=== PATIENT | female | born 1965 | race Caucasian/White ===

== ENCOUNTER 2024-05-19 15:45 | Inpatient (IN) | payer OTHER, MEDICAID ==
[~2024-05-19] VITALS: Ht 167.6 cm; Wt 80.3 kg
[2024-05-19] MEDS: VANCOMYCIN IV 1,000 MG in IV DEXTROSE 5% 250 ML IV ONE (16:00)
[2024-05-19] MEDS ORDERED: CLINDAMYCIN 600 MG PIGGYBACK**ER OMNI IV ONE (16:11)
[2024-05-19] MEDS ORDERED: CEFTRIAXONE /D5W 50ML IVPB **ER PYXIS IV ONE (16:11)
[2024-05-19] MEDS ORDERED: VANCOMYCIN IV 200 ML ONE ×2 (16:11→22:03)
[2024-05-19 16:23] LABS: ABG BASE EXCESS 1.7 mmol/L (-2.0-3.0); ABG HCO3 25.3 mmol/L (21.0-28.0); ABG PCO2 35.1 mmHg (32.0-45.0); ABG PH 7.475 (7.350-7.450); ABG PO2 52.6 mmHg (83.0-108.0); ABG SITE LEFT RADIAL; AaDO2 89.6 mmHg; COHb 0.5 % (0.5-1.5); MetHb 0.4 % (0.0-1.5); O2Hb 87.4 % (94.0-98.0)
[2024-05-19] MEDS: CLINDAMYCIN PHOSPHATE IV 600 MG in IV DEXTROSE 5% 100 ML IV ONE (16:30)
[2024-05-19 16:33] LABS: CALCIUM 8.6 mg/dL (8.5-10.1); CARBON DIOXIDE 28 mmol/L (21-32); CHLORIDE 94 mmol/L (98-107); CREATININE 1.1 mg/dL (0.6-1.3); GLUCOSE 254 mg/dL (74-106); POTASSIUM 4.5 mmol/L (3.5-5.1); SODIUM SERUM 132 mmol/L (136-145); UREA NITROGEN, BLOOD 20 mg/dL (7-18)
[2024-05-19 16:35] LABS: EOSINOPHILS % (AUTO) 0.1 % (0.0-7.0); LYMPHOCYTES # (AUTO) 1.1 K/uL (0.8-4.8); PLATELET COUNT (AUTO) 296 K/uL (179-408); WHITE BLOOD COUNT (AUTO) 12.8 K/uL (3.8-11.8)
[2024-05-19 16:36] LABS: BASOPHILS # (AUTO) 0.1 K/UL (0.0-0.2); BASOPHILS % (AUTO) 0.5 % (0.0-2.0); HEMATOCRIT 22.3 % (31.2-41.9); MEAN CORPUSCULAR HGB CONC 33 g/dL (32.3-35.6); MEAN CORPUSCULAR VOLUME 77.1 fL (75.5-95.3); MONOCYTES # (AUTO) 0.6 K/uL (0.1-1.30); MONOCYTES % (AUTO) 4.5 % (0.0-11.0); NEUTROPHILS % (AUTO) 85.9 % (38.5-71.5); RED BLOOD CELL COUNT(AUTO) 2.89 MIL/uL (3.63-4.92); RED CELL DISTRIBUTION WIDTH 19.1 % (12.3-17.7)
[2024-05-19 16:37] LABS: DIFFERENTIAL COMMENT 1; HEMOGLOBIN 7.2 g/dL (10.9-14.3)
[2024-05-19] MEDS: CEFTRIAXONE 1 G in IV DEXTROSE 5% 50 ML IV ONE (16:42)
[2024-05-19] MEDS: IV NORMAL SALINE 1000 ML BAG IV ONE (16:42)
[2024-05-19 16:44] LABS: LACTIC ACID 2.9 mmol/L (0.4-2.0)
[2024-05-19 16:46] LABS: ALANINE AMINOTRANSFERASE 23 U/L (14-59); ALKALINE PHOSPHATASE 349 U/L (50-136); ASPARTATE AMINOTRANSFERASE 21 U/L (15-37); BILIRUBIN,DIRECT 0.6 mg/dL (0.0-0.2); BILIRUBIN,TOTAL 0.9 mg/dL (0.2-1.0); NT-PRO BNP 805 pg/mL (0-125); TOTAL PROTEIN, SERUM 8.2 g/dL (6.4-8.2)
[2024-05-19 16:51] LABS: ALBUMIN 1.4 g/dL (3.4-5.0)
[2024-05-19] MEDS ORDERED: ATOR20TA PO (17:11)
[2024-05-19] MEDS ORDERED: GABA300T25 PO (17:11)
[2024-05-19] MEDS ORDERED: METO-356 PO (17:11)
[2024-05-19] MEDS ORDERED: TRAM100T39 PO (17:11)
[2024-05-19] MEDS ORDERED: INSU3INS6 SQ (17:11)
[2024-05-19] MEDS ORDERED: QUET50TA24 PO (17:11)
[2024-05-19] MEDS ORDERED: OXYC-875 PO (17:11)
[2024-05-19] MEDS ORDERED: FERR325T28 PO (17:11)
[2024-05-19] MEDS ORDERED: METF-442 PO (17:11)
[2024-05-19] MEDS ORDERED: ONDANSETRON 4 MG/2 ML VIAL ONE (17:28)
[2024-05-19] MEDS ORDERED: HYDROMORPHONE 1 MG/1 ML DISP.SYRIN ONE (17:28)
[2024-05-19] MEDS: HYDROMORPHONE 1 MG/1 ML DISP.SYRIN IV ONE (17:49)
[2024-05-19] MEDS: ONDANSETRON 4 MG/2 ML VIAL IV ONE (17:49)
[2024-05-19 18:36] LABS: *BILIRUBIN,URIN 1+ (NEGATIVE); *BLOOD, URINE 1+ (NEGATIVE); *KETONES,URINE NEGATIVE (NEGATIVE); *PROTEIN,URINE 1+ (NEGATIVE); LEUKOCYTE ESTERASE ,URINE NEGATIVE (NEGATIVE); NITRITE, URINE NEGATIVE (NEGATIVE); PH,URINE 5.5 (5.0-8.0); UGLUCOSE 1+ (NEGATIVE)
[2024-05-19 18:42] LABS: *CLARITY,URINE SLIGHTLY CLOUDY (CLEAR); *COLOR,URINE DARK YELLOW (YELLOW)
[2024-05-19 19:10] LABS: RBC,URINE 0-3 /HPF (0-3); WBC,URINE 0-3 /HPF (0-3)
[2024-05-19 19:11] LABS: BACTERIA,URINE FEW /HPF (NONE SEEN); SQUAMOUS EPITHELIAL CELL,UR FEW /HPF (NONE SEEN)
[2024-05-19 19:12] LABS: YEAST,URINE MANY /HPF (NONE SEEN)
[2024-05-19] MEDS ORDERED: [UNRECOGNIZED DRUG - OTHER] PO SCH (20:00)
[2024-05-19] MEDS ORDERED: ACETAMINOPHEN PO SCH (20:00)
[2024-05-19] MEDS ORDERED: OXYCODONE HCL PO SCH (20:00)
[2024-05-19] MEDS ORDERED: DEXTROSE 50% 50 ML DISP.SYRIN IV PRN (20:15)
[2024-05-19] MEDS ORDERED: MAGNESIUM HYDROXIDE 30 ML LIQUID UDC PO PRN (20:15)
[2024-05-19] MEDS ORDERED: DOCUSATE SODIUM 250 MG CAPSULE PO SCH (21:00)
[2024-05-19 21:20] VITALS: BP 107/75; TEMP 97.8; O2SAT 100
[2024-05-19] MEDS: INSULIN REGULAR, HUMAN 1000 UNIT/10 ML VIAL SQ PRN (21:27)
[2024-05-19] MEDS ORDERED: INSULIN GLARGINE,HUM 300 UNITS/3 ML CARTRIDGE SQ ONE (21:58)
[2024-05-19] MEDS ORDERED: METRONIDAZOLE 500 MG/NS 100ML 100 ML IV ONE ×2 (21:59→22:00)
[2024-05-19] MEDS ORDERED: CEFEPIME HCL 1 G VIAL ONE (22:00)
[2024-05-19] MEDS: BLOOD SUGAR DIAGNOSTIC 1 EACH STRIP VI SCH (22:05)
[2024-05-19] MEDS: ACIDOPHILUS/BULGARICUS CHEW TAB PO SCH (22:14)
[2024-05-19] MEDS: ATORVASTATIN 20 MG TABLET PO SCH (22:14)
[2024-05-19] MEDS: QUETIAPINE FUMARATE 25 MG TABLET PO SCH (22:14)
[2024-05-19] MEDS: GABAPENTIN 300 MG CAPSULE PO SCH (22:14)
[2024-05-19] MEDS: METRONIDAZOLE 500 MG/NS 100ML 500 MG in PREMIXED 1 EACH IV SCH (22:31)
[2024-05-19] MEDS: INSULIN GLARGINE,HUM 300 UNITS/3 ML CARTRIDGE SQ SCH (22:41)
[2024-05-19] MEDS: DOCUSATE SODIUM 100 MG CAPSULE PO SCH (23:05)
[2024-05-19] MEDS: TRAMADOL HCL 50 MG TABLET PO PRN (23:50)
[2024-05-20] VITALS (17 sets, daily range): BP systolic 100–153; BP diastolic 62–79; TEMP 97.7–99.4; O2SAT 92–98
[2024-05-20] MEDS: ZOLPIDEM 5 MG TABLET PO PRN (01:56)
[2024-05-20] MEDS: VANCOMYCIN IV 1,000 MG in IV DEXTROSE 5% 250 ML IV ONE (04:05)
[2024-05-20] MEDS: PANTOPRAZOLE SODIUM 40 MG TABLET.DR PO SCH (06:22)
[2024-05-20 07:57] LABS: BASOPHILS % (AUTO) 0.2 % (0.0-2.0); DIFFERENTIAL COMMENT 0; EOSINOPHILS % (AUTO) 0.3 % (0.0-7.0); LYMPHOCYTES # (AUTO) 1.2 K/uL (0.8-4.8); LYMPHOCYTES % (AUTO) 10.1 % (20.5-51.5); MEAN CORPUSCULAR HEMOGLOBIN 24.6 uug (24.7-32.8); MEAN CORPUSCULAR HGB CONC 32 g/dL (32.3-35.6); MEAN CORPUSCULAR VOLUME 77.1 fL (75.5-95.3); MONOCYTES # (AUTO) 0.6 K/uL (0.1-1.30); MONOCYTES % (AUTO) 5.2 % (0.0-11.0); NEUTROPHILS # (AUTO) 10.4 K/uL (1.8-8.9); NEUTROPHILS % (AUTO) 84.2 % (38.5-71.5); PLATELET COUNT (AUTO) 285 K/uL (179-408); RED BLOOD CELL COUNT(AUTO) 2.51 MIL/uL (3.63-4.92); RED CELL DISTRIBUTION WIDTH 18.8 % (12.3-17.7); WHITE BLOOD COUNT (AUTO) 12.3 K/uL (3.8-11.8)
[2024-05-20 08:00] LABS: BILIRUBIN,TOTAL 0.9 mg/dL (0.2-1.0); CALCIUM 8.1 mg/dL (8.5-10.1); CREATININE 0.9 mg/dL (0.6-1.3); MAGNESIUM 1.9 mg/dL (1.8-2.4); PHOSPHOROUS 3.2 mg/dL (2.5-4.9); POTASSIUM 4.1 mmol/L (3.5-5.1); TOTAL PROTEIN, SERUM 7.2 g/dL (6.4-8.2)
[2024-05-20 08:01] LABS: HEMATOCRIT 19.4 % (31.2-41.9); HEMOGLOBIN 6.2 g/dL (10.9-14.3)
[2024-05-20 08:04] LABS: ALBUMIN 1.3 g/dL (3.4-5.0)
[2024-05-20] MEDS: FERROUS SULFATE 325 MG TABEC PO SCH (08:23)
[2024-05-20] MEDS: ZINC SULFATE 220 MG CAPSULE PO SCH (08:23)
[2024-05-20] MEDS: METOPROLOL SUCCINATE XL 25 MG TAB.SR.24H PO SCH (08:23)
[2024-05-20] MEDS: ASCORBIC ACID 500 MG TABLET PO SCH (08:23)
[2024-05-20] MEDS: CEFEPIME HCL 1 G in IV DEXTROSE 5% 50 ML IV SCH (08:59)
[2024-05-20] MEDS ORDERED: ENOXAPARIN SODIUM 30 MG/0.3 ML DISP.SYRIN SUBCUT SCH (09:00)
[2024-05-20] MEDS: OXYCODONE/APAP 5-325 MG TABLET PO PRN (10:56)
[2024-05-20 13:05] LABS: LYMPHOCYTES % (MANUAL) 20 % (20-40); MONOCYTES % (MANUAL) 8 % (2-10); NEUTROPHILS % (MANUAL) 72 % (42-75)
[2024-05-20 13:07] LABS: PLATELET ESTIMATE ADEQUATE
[2024-05-20 13:08] LABS: ANISOCYTOSIS 2+; HYPOCHROMASIA 1+
[2024-05-20] MEDS: IV NS 1000 ML 1,000 ML IV SCH (13:30)
[2024-05-20 13:46] LABS: ERYTHROCYTE SEDIMENTATION RATE 58 MM/HR (0-20)
[2024-05-20] MEDS: VANCOMYCIN IV 1,250 MG in IV DEXTROSE 5% 250 ML IV SCH (14:10)
[2024-05-20] MEDS ORDERED: APIX2.5T PO (17:48)
[2024-05-20 18:54] LABS: THYROID STIMULATING HORMONE 1.11 mIU/mL (0.358-3.740)
[2024-05-20] MEDS: diphenhydrAMINE 25 MG CAP PO PRN (20:42)
[2024-05-20 21:36] LABS: BASOPHILS # (AUTO) 0.1 K/UL (0.0-0.2); BASOPHILS % (AUTO) 0.5 % (0.0-2.0); EOSINOPHILS # (AUTO) 0.1 K/uL (0.0-0.7); EOSINOPHILS % (AUTO) 0.5 % (0.0-7.0); HEMATOCRIT 22.7 % (31.2-41.9); LYMPHOCYTES # (AUTO) 1.5 K/uL (0.8-4.8); LYMPHOCYTES % (AUTO) 13.1 % (20.5-51.5); MEAN CORPUSCULAR HEMOGLOBIN 24.9 uug (24.7-32.8); MEAN CORPUSCULAR HGB CONC 32 g/dL (32.3-35.6); MONOCYTES # (AUTO) 0.6 K/uL (0.1-1.30); MONOCYTES % (AUTO) 5.2 % (0.0-11.0); NEUTROPHILS # (AUTO) 9.2 K/uL (1.8-8.9); NEUTROPHILS % (AUTO) 80.7 % (38.5-71.5); PLATELET COUNT (AUTO) 273 K/uL (179-408); RED BLOOD CELL COUNT(AUTO) 2.88 MIL/uL (3.63-4.92); RED CELL DISTRIBUTION WIDTH 19.4 % (12.3-17.7); WHITE BLOOD COUNT (AUTO) 11.4 K/uL (3.8-11.8)
[2024-05-20 21:38] LABS: DIFFERENTIAL COMMENT 1; HEMOGLOBIN 7.2 g/dL (10.9-14.3)
[2024-05-21] VITALS (7 sets, daily range): BP systolic 111–159; BP diastolic 56–82; TEMP 98.5–102.8; O2SAT 93–100
[2024-05-21 07:06] LABS: BASOPHILS # (AUTO) 0.1 K/UL (0.0-0.2); BASOPHILS % (AUTO) 1.3 % (0.0-2.0); EOSINOPHILS % (AUTO) 0.5 % (0.0-7.0); HEMATOCRIT 24.3 % (31.2-41.9); LYMPHOCYTES # (AUTO) 1.2 K/uL (0.8-4.8); LYMPHOCYTES % (AUTO) 11.6 % (20.5-51.5); MEAN CORPUSCULAR HEMOGLOBIN 25.9 uug (24.7-32.8); MEAN CORPUSCULAR HGB CONC 33 g/dL (32.3-35.6); MEAN CORPUSCULAR VOLUME 78.1 fL (75.5-95.3); MONOCYTES # (AUTO) 0.6 K/uL (0.1-1.30); MONOCYTES % (AUTO) 5.3 % (0.0-11.0); NEUTROPHILS # (AUTO) 8.5 K/uL (1.8-8.9); NEUTROPHILS % (AUTO) 81.3 % (38.5-71.5); PLATELET COUNT (AUTO) 253 K/uL (179-408); RED BLOOD CELL COUNT(AUTO) 3.11 MIL/uL (3.63-4.92); RED CELL DISTRIBUTION WIDTH 19.1 % (12.3-17.7); WHITE BLOOD COUNT (AUTO) 10.5 K/uL (3.8-11.8)
[2024-05-21 07:25] LABS: DIFFERENTIAL COMMENT 1
[2024-05-21 07:38] LABS: CALCIUM 8.2 mg/dL (8.5-10.1); CREATININE 0.8 mg/dL (0.6-1.3); PHOSPHOROUS 3.2 mg/dL (2.5-4.9); POTASSIUM 3.9 mmol/L (3.5-5.1)
[2024-05-21] MEDS: CEFEPIME HCL 2 GM in IV DEXTROSE 5% 100 ML IV SCH (09:14)
[2024-05-21] MEDS ORDERED: MORPHINE SULFATE 2 MG/1 ML DISP.SYRIN SQ PRN (09:30)
[2024-05-21] MEDS: MORPHINE SULFATE 2 MG/1 ML DISP.SYRIN IV PRN (11:18)
[2024-05-21] MEDS: ACETAMINOPHEN 325 MG TABLET PO PRN (15:17)
[2024-05-21] MEDS: ALPRAZOLAM 0.5 MG TABLET PO PRN (15:25)
[2024-05-21] MEDS: GLUCERNA SHAKE 237 ML CAN PO SCH (17:24)
[2024-05-22] MEDS: diphenhydrAMINE 25 MG CAP PO PRN (05:41)
[2024-05-22 07:03] LABS: BASOPHILS % (AUTO) 0.4 % (0.0-2.0); EOSINOPHILS # (AUTO) 0.1 K/uL (0.0-0.7); EOSINOPHILS % (AUTO) 0.9 % (0.0-7.0); HEMOGLOBIN 7.8 g/dL (10.9-14.3); LYMPHOCYTES # (AUTO) 1.1 K/uL (0.8-4.8); LYMPHOCYTES % (AUTO) 13.6 % (20.5-51.5); MEAN CORPUSCULAR HEMOGLOBIN 25.6 uug (24.7-32.8); MEAN CORPUSCULAR HGB CONC 33 g/dL (32.3-35.6); MEAN CORPUSCULAR VOLUME 78.9 fL (75.5-95.3); MONOCYTES # (AUTO) 0.5 K/uL (0.1-1.30); MONOCYTES % (AUTO) 6.1 % (0.0-11.0); NEUTROPHILS # (AUTO) 6.5 K/uL (1.8-8.9); PLATELET COUNT (AUTO) 261 K/uL (179-408); RED BLOOD CELL COUNT(AUTO) 3.04 MIL/uL (3.63-4.92); RED CELL DISTRIBUTION WIDTH 19.5 % (12.3-17.7); WHITE BLOOD COUNT (AUTO) 8.2 K/uL (3.8-11.8)
[2024-05-22 07:22] LABS: CALCIUM 7.8 mg/dL (8.5-10.1); CREATININE 0.9 mg/dL (0.6-1.3); MAGNESIUM 2.1 mg/dL (1.8-2.4); POTASSIUM 3.6 mmol/L (3.5-5.1); VANCOMYCIN,TROUGH 14.4 ug/mL (10.0-20.0)
[2024-05-22 07:36] LABS: DIFFERENTIAL COMMENT 1
[2024-05-22 07:40] VITALS: BP 161/81; TEMP 97.8; O2SAT 100
[2024-05-22] MEDS ORDERED: PROPOFOL 200 MG/20 ML BOTTLE ONE (08:00)
[2024-05-22] MEDS: IV NS 1000 ML 1,000 ML IV PRN (09:40)
[2024-05-22] MEDS: SODIUM HYPOCHLORITE 0.125% (QUARTER STRENGTH) 473 ML BOTTLE TP SCH (11:45)
[2024-05-22 12:00] VITALS: BP 138/71; TEMP 97.8; O2SAT 98
[2024-05-22 16:00] VITALS: BP 153/82; TEMP 97.8; O2SAT 97
[2024-05-23 00:08] VITALS: BP 184/80; TEMP 100.4; O2SAT 97
[2024-05-23 02:38] VITALS: BP 179/80; TEMP 100.8; O2SAT 96
[2024-05-23 05:23] VITALS: BP 184/88; TEMP 102.5; O2SAT 95
[2024-05-23 07:01] LABS: BASOPHILS # (AUTO) 0.1 K/UL (0.0-0.2); BASOPHILS % (AUTO) 0.5 % (0.0-2.0); EOSINOPHILS # (AUTO) 0.1 K/uL (0.0-0.7); EOSINOPHILS % (AUTO) 0.7 % (0.0-7.0); HEMATOCRIT 25.7 % (31.2-41.9); HEMOGLOBIN 8.3 g/dL (10.9-14.3); LYMPHOCYTES # (AUTO) 1.5 K/uL (0.8-4.8); LYMPHOCYTES % (AUTO) 14.5 % (20.5-51.5); MEAN CORPUSCULAR HEMOGLOBIN 25.3 uug (24.7-32.8); MEAN CORPUSCULAR HGB CONC 32 g/dL (32.3-35.6); MEAN CORPUSCULAR VOLUME 78.8 fL (75.5-95.3); MONOCYTES # (AUTO) 0.7 K/uL (0.1-1.30); MONOCYTES % (AUTO) 6.7 % (0.0-11.0); NEUTROPHILS # (AUTO) 7.9 K/uL (1.8-8.9); NEUTROPHILS % (AUTO) 77.6 % (38.5-71.5); PLATELET COUNT (AUTO) 313 K/uL (179-408); RED BLOOD CELL COUNT(AUTO) 3.26 MIL/uL (3.63-4.92); RED CELL DISTRIBUTION WIDTH 19.5 % (12.3-17.7); WHITE BLOOD COUNT (AUTO) 10.2 K/uL (3.8-11.8)
[2024-05-23 07:11] LABS: CALCIUM 8.4 mg/dL (8.5-10.1); CREATININE 0.8 mg/dL (0.6-1.3); MAGNESIUM 1.9 mg/dL (1.8-2.4); PHOSPHOROUS 2.7 mg/dL (2.5-4.9)
[2024-05-23 07:16] LABS: DIFFERENTIAL COMMENT 1
[2024-05-23] MEDS ORDERED: FENTANYL CITRATE 100 MCG/2 ML AMPUL ONE (07:44)
[2024-05-23] MEDS ORDERED: MIDAZOLAM HCL 2 MG/2 ML VIAL ONE (07:45)
[2024-05-23] MEDS ORDERED: KETAMINE HCL 500 MG/5 ML VIAL ONE (07:45)
[2024-05-23] MEDS ORDERED: BUPIVACAINE PF 0.5% 30 ML VIAL ONE (07:50)
[2024-05-23] MEDS ORDERED: FAMOTIDINE. 20 MG/2 ML VIAL IV ONE (08:03)
[2024-05-23] MEDS ORDERED: ONDANSETRON 4 MG/2 ML VIAL IV PRN (09:45)
[2024-05-23] MEDS ORDERED: FENTANYL CITRATE 100 MCG/2 ML AMPUL IV ONE (09:45)
[2024-05-23] MEDS ORDERED: FENTANYL CITRATE 100 MCG/2 ML AMPUL IV PRN ×2 (09:45)
[2024-05-23 11:30] VITALS: BP 138/70; TEMP 102.1; O2SAT 96
[2024-05-23] MEDS: VANCOMYCIN IV 1,250 MG in IV DEXTROSE 5% 250 ML IV SCH (12:33)
[2024-05-23 19:00] VITALS: BP 154/60; TEMP 101.5; O2SAT 98
[2024-05-24] VITALS: BP 146/57; TEMP 98.8; O2SAT 96
[2024-05-24] MEDS: VANCOMYCIN IV 1,250 MG in IV DEXTROSE 5% 250 ML IV SCH (02:04)
[2024-05-24 04:00] VITALS: BP 141/63; TEMP 100.5; O2SAT 95
[2024-05-24 07:05] LABS: BASOPHILS % (AUTO) 0.4 % (0.0-2.0); EOSINOPHILS # (AUTO) 0.1 K/uL (0.0-0.7); EOSINOPHILS % (AUTO) 0.7 % (0.0-7.0); HEMATOCRIT 24.6 % (31.2-41.9); HEMOGLOBIN 8.1 g/dL (10.9-14.3); LYMPHOCYTES # (AUTO) 1.5 K/uL (0.8-4.8); LYMPHOCYTES % (AUTO) 20.6 % (20.5-51.5); MEAN CORPUSCULAR HEMOGLOBIN 25.9 uug (24.7-32.8); MEAN CORPUSCULAR HGB CONC 33 g/dL (32.3-35.6); MEAN CORPUSCULAR VOLUME 78.9 fL (75.5-95.3); MONOCYTES # (AUTO) 0.6 K/uL (0.1-1.30); MONOCYTES % (AUTO) 8.3 % (0.0-11.0); NEUTROPHILS # (AUTO) 5.2 K/uL (1.8-8.9); PLATELET COUNT (AUTO) 290 K/uL (179-408); RED BLOOD CELL COUNT(AUTO) 3.11 MIL/uL (3.63-4.92); WHITE BLOOD COUNT (AUTO) 7.5 K/uL (3.8-11.8)
[2024-05-24 07:09] LABS: CALCIUM 7.9 mg/dL (8.5-10.1); CREATININE 0.9 mg/dL (0.6-1.3); MAGNESIUM 1.9 mg/dL (1.8-2.4); PHOSPHOROUS 2.7 mg/dL (2.5-4.9); POTASSIUM 3.3 mmol/L (3.5-5.1)
[2024-05-24 07:23] LABS: DIFFERENTIAL COMMENT 1
[2024-05-24 07:40] VITALS: BP 153/72; TEMP 99.1; O2SAT 100
[2024-05-24] MEDS: POTASSIUM CHLORIDE 20 MEQ TAB.PRT.SR PO ONE (10:38)
[2024-05-24 12:10] VITALS: BP 160/74; TEMP 98.6; O2SAT 99
[2024-05-24] MEDS: SOD FERRIC GLUC COMPLX/SUCROSE 125 MG in IV NORMAL SALINE 100 ML IV SCH (14:02)
[2024-05-24] MEDS: ONDANSETRON 4 MG/2 ML VIAL IV PRN (15:22)
[2024-05-24 15:42] VITALS: BP_SYST 170; BP_SYST 180; BP_DIAS 82; TEMP 100.1; O2SAT 99
[2024-05-24 23:06] VITALS: BP 150/55; TEMP 98.4; O2SAT 100
[2024-05-25 03:55] VITALS: BP 134/59; TEMP 98; O2SAT 99
[2024-05-25 05:27] LABS: CALCIUM 7.8 mg/dL (8.5-10.1); CREATININE 0.8 mg/dL (0.6-1.3)
[2024-05-25 05:39] VITALS: BP 153/71; TEMP 100.4; O2SAT 97
[2024-05-25 07:34] VITALS: BP 165/75; TEMP 98.4; O2SAT 100
[2024-05-25 11:45] VITALS: BP 159/80; TEMP 98.4; O2SAT 72
[2024-05-25] MEDS: AMLODIPINE 5 MG TABLET PO SCH (13:00)
[2024-05-25] MEDS: QUETIAPINE FUMARATE 25 MG TABLET PO PRN (13:02)
[2024-05-25 14:59] VITALS: BP 166/61; TEMP 99.3; O2SAT 95
[2024-05-25] MEDS: VANCOMYCIN IV 1,250 MG in IV DEXTROSE 5% 250 ML IV SCH (18:05)
[2024-05-25] MEDS: HEPARIN SODIUM,PORCINE 5,000 UNITS/ML VIAL SQ SCH (20:55)
[2024-05-25 22:52] VITALS: BP 161/76; TEMP 99.4; O2SAT 100
[2024-05-26] VITALS (7 sets, daily range): BP systolic 121–165; BP diastolic 65–86; TEMP 98.2–99.9; O2SAT 97–100
[2024-05-26] MEDS ORDERED: CEFTRIAXONE 1 G VIAL ONE (04:56)
[2024-05-26] MEDS: CEFTRIAXONE 2 G in IV DEXTROSE 5% 100 ML IV SCH (05:17)
[2024-05-26 07:36] LABS: BASOPHILS # (AUTO) 0.1 K/UL (0.0-0.2); BASOPHILS % (AUTO) 0.7 % (0.0-2.0); EOSINOPHILS # (AUTO) 0.1 K/uL (0.0-0.7); EOSINOPHILS % (AUTO) 1.2 % (0.0-7.0); HEMATOCRIT 28.2 % (31.2-41.9); HEMOGLOBIN 9.2 g/dL (10.9-14.3); LYMPHOCYTES # (AUTO) 1.7 K/uL (0.8-4.8); MEAN CORPUSCULAR HEMOGLOBIN 25.9 uug (24.7-32.8); MEAN CORPUSCULAR HGB CONC 33 g/dL (32.3-35.6); MEAN CORPUSCULAR VOLUME 79.3 fL (75.5-95.3); MONOCYTES # (AUTO) 0.7 K/uL (0.1-1.30); MONOCYTES % (AUTO) 7.4 % (0.0-11.0); NEUTROPHILS # (AUTO) 6.6 K/uL (1.8-8.9); NEUTROPHILS % (AUTO) 71.7 % (38.5-71.5); PLATELET COUNT (AUTO) 370 K/uL (179-408); RED BLOOD CELL COUNT(AUTO) 3.56 MIL/uL (3.63-4.92); RED CELL DISTRIBUTION WIDTH 20.6 % (12.3-17.7); WHITE BLOOD COUNT (AUTO) 9.1 K/uL (3.8-11.8)
[2024-05-26 07:52] LABS: DIFFERENTIAL COMMENT 1
[2024-05-26 08:14] LABS: CREATININE 0.8 mg/dL (0.6-1.3); POTASSIUM 3.4 mmol/L (3.5-5.1)
[2024-05-26 08:28] LABS: CALCIUM 8.2 mg/dL (8.5-10.1); MAGNESIUM 1.8 mg/dL (1.8-2.4)
[2024-05-26 10:35] LABS: *SODIUM RNDM,URINE 53 mmol/L (40-220)
[2024-05-26] MEDS: POTASSIUM CHLORIDE 20 MEQ TAB.PRT.SR PO ONE (11:52)
[2024-05-27] VITALS: BP 149/82; TEMP 98.4; O2SAT 98
[2024-05-27 04:00] VITALS: BP 125/69; TEMP 98.1; O2SAT 98
[2024-05-27 07:10] LABS: CALCIUM 8.6 mg/dL (8.5-10.1); CREATININE 0.8 mg/dL (0.6-1.3); POTASSIUM 4.1 mmol/L (3.5-5.1)
[2024-05-27 12:00] VITALS: BP 138/70; TEMP 98.2; O2SAT 98
[2024-05-27] MEDS ORDERED: INSULIN REGULAR, HUMAN 300 UNITS/3 ML VIAL SQ PRN (12:00)
[2024-05-27] MEDS: INSULIN REGULAR, HUMAN 1000 UNIT/10 ML VIAL SQ ONE (12:06)
[2024-05-27 16:00] VITALS: BP 142/75; TEMP 98.4; O2SAT 96
[2024-05-27] MEDS: INSULIN REGULAR, HUMAN 1000 UNIT/10 ML VIAL SQ PRN (17:59)
[2024-05-27 19:35] VITALS: BP 134/63; TEMP 97.7; O2SAT 100
[2024-05-28 00:02] VITALS: BP 138/72; TEMP 97.8; O2SAT 97
[2024-05-28 04:36] VITALS: BP 161/76; TEMP 98; O2SAT 98
[2024-05-28 07:07] LABS: BASOPHILS # (AUTO) 0.1 K/UL (0.0-0.2); BASOPHILS % (AUTO) 0.9 % (0.0-2.0); EOSINOPHILS # (AUTO) 0.1 K/uL (0.0-0.7); EOSINOPHILS % (AUTO) 1.3 % (0.0-7.0); HEMATOCRIT 30.2 % (31.2-41.9); HEMOGLOBIN 9.7 g/dL (10.9-14.3); LYMPHOCYTES # (AUTO) 1.6 K/uL (0.8-4.8); LYMPHOCYTES % (AUTO) 17.6 % (20.5-51.5); MEAN CORPUSCULAR HEMOGLOBIN 26.4 uug (24.7-32.8); MEAN CORPUSCULAR HGB CONC 32 g/dL (32.3-35.6); MONOCYTES # (AUTO) 0.5 K/uL (0.1-1.30); MONOCYTES % (AUTO) 5.2 % (0.0-11.0); NEUTROPHILS # (AUTO) 6.9 K/uL (1.8-8.9); PLATELET COUNT (AUTO) 325 K/uL (179-408); RED BLOOD CELL COUNT(AUTO) 3.68 MIL/uL (3.63-4.92); RED CELL DISTRIBUTION WIDTH 20.4 % (12.3-17.7); WHITE BLOOD COUNT (AUTO) 9.2 K/uL (3.8-11.8)
[2024-05-28 07:32] LABS: CALCIUM 8.8 mg/dL (8.5-10.1); CREATININE 0.8 mg/dL (0.6-1.3); PHOSPHOROUS 3.3 mg/dL (2.5-4.9); POTASSIUM 4.4 mmol/L (3.5-5.1)
[2024-05-28 07:36] VITALS: BP 154/82; TEMP 97.9; O2SAT 97
[2024-05-28 07:36] LABS: DIFFERENTIAL COMMENT 1
[2024-05-28 11:40] VITALS: BP 148/82; TEMP 98.3; O2SAT 100
[2024-05-28 16:00] VITALS: BP 167/86; TEMP 98.1; O2SAT 97
[2024-05-28 19:00] VITALS: BP 173/90; TEMP 98.6; O2SAT 98
[2024-05-28] MEDS ORDERED: CIPROFLOXACIN HCL 250 MG TABLET ONE (22:27)
[2024-05-28] MEDS: CIPROFLOXACIN HCL 250 MG TABLET PO SCH (22:42)
[2024-05-29] VITALS: BP 130/98; TEMP 98; O2SAT 96
[2024-05-29 04:15] VITALS: BP 127/75; TEMP 98; O2SAT 98
[2024-05-29 07:42] VITALS: BP 147/78; TEMP 97.7; O2SAT 98
[2024-05-29 11:42] VITALS: BP 115/73; TEMP 98.3; O2SAT 96
== END 2024-05-29 15:15 | disposition home health service (06) | DRG 853 ==
LOC: ER 15:45 → TELE3 19:54
PROVIDERS: ADMIT Internal Medicine
PROC: 30233N1 Transfusion of Nonautologous Red Blood Cells into Peripheral Vein, Percutaneous Approach (ICD-10-PCS; 2024-05-20)
PROC: 05HB33Z Insertion of Infusion Device into Right Basilic Vein, Percutaneous Approach (ICD-10-PCS; 2024-05-21)
PROC: 0J9Q0ZZ Drainage of Right Foot Subcutaneous Tissue and Fascia, Open Approach (ICD-10-PCS; principal; 2024-05-23)
PROC: 0KBV0ZZ Excision of Right Foot Muscle, Open Approach (ICD-10-PCS; 2024-05-23)
PROC: 0QBN0ZX Excision of Right Metatarsal, Open Approach, Diagnostic (ICD-10-PCS; 2024-05-23)
PROC: 02HV33Z Insertion of Infusion Device into Superior Vena Cava, Percutaneous Approach (ICD-10-PCS; 2024-05-28)
DX: A41.01 Sepsis due to Methicillin susceptible Staphylococcus aureus (principal); A48.0 Gas gangrene; E43 Unspecified severe protein-calorie malnutrition; M86.171 Other acute osteomyelitis, right ankle and foot; E11.52 Type 2 diabetes mellitus with diabetic peripheral angiopathy with gangrene; L02.611 Cutaneous abscess of right foot; D62 Acute posthemorrhagic anemia; D68.59 Other primary thrombophilia; E87.20 Acidosis, unspecified; L03.115 Cellulitis of right lower limb; E87.1 Hypo-osmolality and hyponatremia; M86.8X7 Other osteomyelitis, ankle and foot; J90 Pleural effusion, not elsewhere classified; Z68.28 Body mass index [BMI] 28.0-28.9, adult; B95.61 Methicillin susceptible Staphylococcus aureus infection as the cause of diseases classified elsewhere; E88.09 Other disorders of plasma-protein metabolism, not elsewhere classified; R65.20 Severe sepsis without septic shock; E78.5 Hyperlipidemia, unspecified; E11.65 Type 2 diabetes mellitus with hyperglycemia; Z79.01 Long term (current) use of anticoagulants; Z79.4 Long term (current) use of insulin; Z79.84 Long term (current) use of oral hypoglycemic drugs; Z79.899 Other long term (current) drug therapy; E11.42 Type 2 diabetes mellitus with diabetic polyneuropathy; E11.621 Type 2 diabetes mellitus with foot ulcer; L97.513 Non-pressure chronic ulcer of other part of right foot with necrosis of muscle; E86.0 Dehydration; Z88.0 Allergy status to penicillin; E11.69 Type 2 diabetes mellitus with other specified complication; R79.89 Other specified abnormal findings of blood chemistry; F39 Unspecified mood [affective] disorder; I10 Essential (primary) hypertension; Z74.09 Other reduced mobility; Z86.73 Personal history of transient ischemic attack (TIA), and cerebral infarction without residual deficits
CPT/HCPCS: 36415; 36600; 70030-TC; 70450; 71045; 73620; 82803; 83550; 83605; 83735; 84100; 84300; 84443; 84484; 85025; 85651; 85730; 86850; 86900; 86901; 86920; 87040; 87077; A4606; A4649; A4663; G0378; J0692; J0696; J1171; J1644; J1815; J2250; J2270; J2405; J2765; J2916; J3010; J3370; J3490; J7040; J7050; P9016; Q0163

== ENCOUNTER 2024-06-02 16:34 | Inpatient (IN) | payer OTHER, MEDICAID ==
[~2024-06-02] VITALS: Ht 160 cm; Wt 68.0 kg
[~2024-06-02 16:34] MED LIST: APIX2.5T PO; ATOR20TA PO; FERR325T28 PO; GABA300T25 PO; INSU3INS6 SQ; METF-442 PO; METO-356 PO; OXYC-875 PO; QUET50TA24 PO; TRAM100T39 PO
[2024-06-02] MEDS ORDERED: HYDROMORPHONE 1 MG/1 ML DISP.SYRIN IV ONE (17:00)
[2024-06-02 17:21] LABS: BASOPHILS # (AUTO) 0.1 K/UL (0.0-0.2); BASOPHILS % (AUTO) 0.7 % (0.0-2.0); DIFFERENTIAL COMMENT 0; EOSINOPHILS # (AUTO) 0.1 K/uL (0.0-0.7); EOSINOPHILS % (AUTO) 1.4 % (0.0-7.0); HEMATOCRIT 34.2 % (31.2-41.9); HEMOGLOBIN 10.7 g/dL (10.9-14.3); LYMPHOCYTES # (AUTO) 1.3 K/uL (0.8-4.8); LYMPHOCYTES % (AUTO) 18.5 % (20.5-51.5); MEAN CORPUSCULAR HEMOGLOBIN 26.6 uug (24.7-32.8); MEAN CORPUSCULAR HGB CONC 31 g/dL (32.3-35.6); MEAN CORPUSCULAR VOLUME 84.7 fL (75.5-95.3); MONOCYTES # (AUTO) 0.4 K/uL (0.1-1.30); MONOCYTES % (AUTO) 5.2 % (0.0-11.0); NEUTROPHILS # (AUTO) 5.3 K/uL (1.8-8.9); NEUTROPHILS % (AUTO) 74.2 % (38.5-71.5); PLATELET COUNT (AUTO) 286 K/uL (179-408); RED BLOOD CELL COUNT(AUTO) 4.03 MIL/uL (3.63-4.92); WHITE BLOOD COUNT (AUTO) 7.1 K/uL (3.8-11.8)
[2024-06-02 17:31] LABS: CALCIUM 9.4 mg/dL (8.5-10.1); CREATININE 0.8 mg/dL (0.6-1.3); POTASSIUM 4.1 mmol/L (3.5-5.1)
[2024-06-02] MEDS ORDERED: OXYCODONE/APAP 5-325 MG TABLET ONE (17:31)
[2024-06-02] MEDS: OXYCODONE/APAP 5-325 MG TABLET PO ONE (17:35)
[2024-06-02] MEDS: CEFTRIAXONE 2 G in IV DEXTROSE 5% 100 ML IV ONE (17:50)
[2024-06-02] MEDS ORDERED: HYDROMORPHONE 1 MG/1 ML DISP.SYRIN ONE (21:30)
[2024-06-02] MEDS: HYDROMORPHONE 1 MG/1 ML DISP.SYRIN IV ONE (21:40)
[2024-06-02] MEDS ORDERED: OXYCODONE HCL PO SCH (22:15)
[2024-06-02] MEDS ORDERED: [UNRECOGNIZED DRUG - OTHER] PO SCH (22:15)
[2024-06-02] MEDS ORDERED: ACETAMINOPHEN PO SCH (22:15)
[2024-06-02] MEDS ORDERED: DEXTROSE 50% 50 ML DISP.SYRIN IV PRN (22:30)
[2024-06-03] MEDS: HYDROMORPHONE 1 MG/1 ML DISP.SYRIN IV PRN (02:52)
[2024-06-03] MEDS: GABAPENTIN 300 MG CAPSULE PO SCH (05:26)
[2024-06-03] MEDS: ACETAMINOPHEN 325 MG TABLET PO PRN (05:27)
[2024-06-03 06:18] VITALS: BP 146/83; TEMP 96.9; O2SAT 100
[2024-06-03] MEDS: BLOOD SUGAR DIAGNOSTIC 1 EACH STRIP VI SCH (06:35)
[2024-06-03] MEDS: PANTOPRAZOLE SODIUM 40 MG TABLET.DR PO SCH (06:35)
[2024-06-03 07:29] LABS: BASOPHILS # (AUTO) 0.1 K/UL (0.0-0.2); BASOPHILS % (AUTO) 0.8 % (0.0-2.0); EOSINOPHILS # (AUTO) 0.1 K/uL (0.0-0.7); EOSINOPHILS % (AUTO) 2.1 % (0.0-7.0); HEMATOCRIT 32.4 % (31.2-41.9); HEMOGLOBIN 10.6 g/dL (10.9-14.3); LYMPHOCYTES # (AUTO) 1.7 K/uL (0.8-4.8); LYMPHOCYTES % (AUTO) 26.2 % (20.5-51.5); MEAN CORPUSCULAR HEMOGLOBIN 27.3 uug (24.7-32.8); MEAN CORPUSCULAR HGB CONC 33 g/dL (32.3-35.6); MONOCYTES # (AUTO) 0.4 K/uL (0.1-1.30); MONOCYTES % (AUTO) 5.8 % (0.0-11.0); NEUTROPHILS # (AUTO) 4.3 K/uL (1.8-8.9); NEUTROPHILS % (AUTO) 65.1 % (38.5-71.5); PLATELET COUNT (AUTO) 260 K/uL (179-408); RED CELL DISTRIBUTION WIDTH 24.5 % (12.3-17.7); WHITE BLOOD COUNT (AUTO) 6.6 K/uL (3.8-11.8)
[2024-06-03 07:42] LABS: DIFFERENTIAL COMMENT 1
[2024-06-03 07:58] LABS: ALBUMIN 2.4 g/dL (3.4-5.0); BILIRUBIN,TOTAL 0.6 mg/dL (0.2-1.0); CALCIUM 8.7 mg/dL (8.5-10.1); CREATININE 0.9 mg/dL (0.6-1.3); MAGNESIUM 1.6 mg/dL (1.8-2.4); PHOSPHOROUS 4.2 mg/dL (2.5-4.9); POTASSIUM 4.1 mmol/L (3.5-5.1); TOTAL PROTEIN, SERUM 7.8 g/dL (6.4-8.2)
[2024-06-03] MEDS: APIXABAN 2.5 MG TABLET PO SCH (08:04)
[2024-06-03] MEDS: QUETIAPINE FUMARATE 25 MG TABLET PO SCH (08:04)
[2024-06-03] MEDS: METOPROLOL SUCCINATE XL 25 MG TAB.SR.24H PO SCH (08:04)
[2024-06-03] MEDS: CIPROFLOXACIN IV 400 MG in PREMIXED 1 EACH IV SCH (08:07)
[2024-06-03] MEDS: CEFTRIAXONE 2 G in IV DEXTROSE 5% 100 ML IV SCH (10:35)
[2024-06-03 11:02] VITALS: BP 137/80; TEMP 98.6; O2SAT 96
[2024-06-03] MEDS: INSULIN REGULAR, HUMAN 1000 UNIT/10 ML VIAL SQ PRN (11:57)
[2024-06-03] MEDS: MAGNESIUM OXIDE 400 MG TABLET PO ONE (13:17)
[2024-06-03] MEDS ORDERED: GABA300C PO (14:23)
[2024-06-03 15:23] VITALS: BP 124/84; TEMP 98.4; O2SAT 97
[2024-06-03] MEDS: OXYCODONE/APAP 5-325 MG TABLET PO PRN (17:34)
[2024-06-03] MEDS: ATORVASTATIN 20 MG TABLET PO SCH (20:13)
[2024-06-03 20:28] VITALS: BP 142/82; TEMP 97.8; O2SAT 96
[2024-06-04 06:51] LABS: CALCIUM 8.7 mg/dL (8.5-10.1); CREATININE 0.9 mg/dL (0.6-1.3); MAGNESIUM 1.6 mg/dL (1.8-2.4); POTASSIUM 3.8 mmol/L (3.5-5.1)
[2024-06-04 11:34] VITALS: BP 116/56; TEMP 98.9; O2SAT 95
[2024-06-04] MEDS: MAGNESIUM OXIDE 400 MG TABLET PO ONE ×2 (11:57→15:20)
[2024-06-04] MEDS ORDERED: REMEDY ESSENTIAL ZINC PASTE 113 GM TOP PRN (12:30)
[2024-06-04] MEDS ORDERED: MAGNESIUM OXIDE 400 MG TABLET PO ONE (14:00)
[2024-06-04 16:00] VITALS: BP 135/73; TEMP 98.8; O2SAT 94
[2024-06-04] MEDS: CLOTRIMAZOLE 1% CREAM 30 GM TUBE TOP SCH (17:25)
[2024-06-04] MEDS: ARGININE/GLUTAMINE/CALCIUM BMB 1 EACH POWD.PACK PO SCH (17:26)
[2024-06-04 19:05] VITALS: BP 140/64; TEMP 98.5; O2SAT 95
[2024-06-04 21:00] VITALS: BP 140/64; TEMP 98.5; O2SAT 95
[2024-06-04] MEDS ORDERED: CIPROFLOXACIN HCL 250 MG TABLET ONE (21:51)
[2024-06-04] MEDS: CIPROFLOXACIN HCL 250 MG TABLET PO SCH (22:16)
[2024-06-04] MEDS: REMEDY ESSENTIAL ZINC PASTE 113 GM TOP SCH (22:28)
[2024-06-05 04:17] VITALS: BP 146/67; TEMP 96; O2SAT 94
[2024-06-05 07:43] LABS: CALCIUM 8.6 mg/dL (8.5-10.1); CREATININE 0.8 mg/dL (0.6-1.3); MAGNESIUM 1.7 mg/dL (1.8-2.4)
[2024-06-05 07:50] LABS: POTASSIUM 4.1 mmol/L (3.5-5.1)
[2024-06-05] MEDS: MAGNESIUM OXIDE 400 MG TABLET PO ONE (11:27)
[2024-06-05 12:00] VITALS: BP 140/63; TEMP 97; O2SAT 97
[2024-06-05] MEDS ORDERED: CEFT2VIA14 IV (12:39)
[2024-06-05] MEDS ORDERED: CLOT30CR24 TOP (12:39)
[2024-06-05] MEDS ORDERED: CIPR250T4 PO (12:39)
[2024-06-05 16:00] VITALS: BP 134/64; TEMP 97; O2SAT 97
[2024-06-05 19:00] VITALS: BP 129/63; TEMP 98.4; O2SAT 97
[2024-06-06 04:33] VITALS: BP 154/67; TEMP 97.2; O2SAT 96
[2024-06-06 07:58] LABS: CALCIUM 8.7 mg/dL (8.5-10.1); CREATININE 0.9 mg/dL (0.6-1.3); MAGNESIUM 1.6 mg/dL (1.8-2.4); POTASSIUM 3.8 mmol/L (3.5-5.1)
[2024-06-06 08:00] VITALS: BP 139/65; TEMP 97.1; O2SAT 99
[2024-06-06] MEDS: MAGNESIUM OXIDE 400 MG TABLET PO SCH (09:09)
[2024-06-06 15:56] VITALS: BP 107/67; TEMP 98.6; O2SAT 97
[2024-06-06 19:00] VITALS: BP 142/58; TEMP 99.6; O2SAT 94
[2024-06-07 04:03] VITALS: BP 150/67; TEMP 97.7; O2SAT 97
[2024-06-07 07:38] LABS: CALCIUM 8.8 mg/dL (8.5-10.1); CREATININE 0.8 mg/dL (0.6-1.3); MAGNESIUM 1.8 mg/dL (1.8-2.4); POTASSIUM 4.1 mmol/L (3.5-5.1)
[2024-06-07 08:00] VITALS: BP 125/68; TEMP 97.5; O2SAT 98
[2024-06-07 11:40] VITALS: BP 137/70; TEMP 97.6; O2SAT 97
[2024-06-07] MEDS: diphenhydrAMINE 25 MG CAP PO PRN (13:47)
[2024-06-07] MEDS: ONDANSETRON 4 MG/2 ML VIAL IV PRN (16:19)
== END 2024-06-07 17:40 | DRG 602 ==
LOC: ER 16:34 → MEDSURG3 06-03 01:32
PROVIDERS: ADMIT Internal Medicine; ATTEND Nurse Practitioner Acute Care
DX: L03.115 Cellulitis of right lower limb (principal); E43 Unspecified severe protein-calorie malnutrition; L97.515 Non-pressure chronic ulcer of other part of right foot with muscle involvement without evidence of necrosis; M86.8X7 Other osteomyelitis, ankle and foot; D68.59 Other primary thrombophilia; E11.621 Type 2 diabetes mellitus with foot ulcer; E11.69 Type 2 diabetes mellitus with other specified complication; T36.1X6A Underdosing of cephalosporins and other beta-lactam antibiotics, initial encounter; Z91.148 Patient's other noncompliance with medication regimen for other reason; Y92.099 Unspecified place in other non-institutional residence as the place of occurrence of the external cause; E78.5 Hyperlipidemia, unspecified; I10 Essential (primary) hypertension; R79.89 Other specified abnormal findings of blood chemistry; Z79.899 Other long term (current) drug therapy; D63.8 Anemia in other chronic diseases classified elsewhere; Z79.01 Long term (current) use of anticoagulants; Z79.4 Long term (current) use of insulin; Z86.73 Personal history of transient ischemic attack (TIA), and cerebral infarction without residual deficits; Z79.84 Long term (current) use of oral hypoglycemic drugs; Z88.0 Allergy status to penicillin; Z74.09 Other reduced mobility; Z89.422 Acquired absence of other left toe(s); Z89.421 Acquired absence of other right toe(s)
CPT/HCPCS: 36415; 83735; 84100; 85025; 93005; A6209; G0378; J0696; J0744; J1171; J1815; J2405; Q0163